=== PATIENT | female | born 1985 | race Caucasian/White ===

== ENCOUNTER 2021-10-13 12:25 | Emergency (ER) | payer MEDICAID, SELFPAY ==
[2021-10-13 12:49] VITALS: BP 117/65; PULSE 83; RESP 18; TEMP 36.4; O2SAT 99; BMI 22.5
--- NOTE | 2021-10-13 13:22 | ED.GENADULT ---
HPI - General Adult General Chief complaint: Anxiety Stated complaint: Covid positive, having panic attacks Time Seen by Provider: 10/13/21 12:46 History of Present Illness HPI narrative: This 36-year-old female comes in reporting anxiety symptoms that started today. She is not typically anxious but has these symptoms today. She tested positive for COVID 7 days ago and again yesterday positive for COVID. She has some cough and nasal congestion but does not report any shortness of breath. Today she has increased anxiety and reports that she has not been sleeping so well at night. Related Data Previous Rx's Medication Instructions Recorded acetaminophen 300 mg-codeine 30 mg 1 tab PO Q6H PRN #15 tab 10/13/21 tablet lorazepam 0.5 mg tablet (Ativan) 0.5 mg PO BID PRN #10 tab 10/13/21 methylprednisolone 4 mg tablets in 4 mg PO DAILY #21 ea 10/13/21 a dose pack (Medrol (Aleks)) Allergies Allergy/AdvReac Type Severity Reaction Status Date / Time No Known Drug Allergies Allergy Verified 10/13/21 12:49 Review of Systems Narrative: Constitutional: No fevers, no weight gain or loss. Eyes: No discharge. No vision changes. HENT: No congestion, no sore throat, no ear pain. Cardiovascular: No chest pain, no palpitations. Respiratory: No shortness of breath, no wheezes, no cough. Gastrointestinal: No abdominal pain, no vomiting, no diarrhea. Genitourinary: No dysuria, no hematuria. Musculoskeletal: Normal range of motion. Skin: No rashes, no pruritis. Neurological: No dizziness, weakness, sensory change, speech change. Endo/Heme/Allergies: No bruising or bleeding. No polydipsia. Pysch: no suicidality. Anxiety symptoms as described above. Some insomnia over the past week. All other systems reviewed and are negative. throughout documentation. PFSH PFS Social History Smoking Status: Never smoker Do you use any of these nicotine containing products: None How often do you have a drink containing alcohol: never AUDIT-C Alcohol total score: 0 Non-prescribed substance use: marijuana (any form) Exam Narrative: Exam Narrative: Constitutional: Well-developed, well-nourished, no acute distress. HEENT: Normocephalic, atraumatic. Neck: Normal range of motion. Nontender. Supple. Heart: Regular. No murmurs. Normal rate. Intact distal pulses. Lungs: Clear to auscultation. No chest discomfort. No wheezes, rhonchi, or rales. Abdomen: Normal bowel sounds. Nontender. No rebound tenderness. Genitalia: Deferred. Back: No midline tenderness. Normal range of motion. Extremities: Normal range of motion. No injury. Skin: Intact. No rash. Warm. No erythema or pallor. Neurologic: No altered sensation. No weakness. Alert and oriented. Psychiatric: No suicidality. No depression. Nursing notes and vitals signs are reviewed. Const: Vital Signs, click to edit/add: Vital Signs - 24 hr 10/13/21 12:49 Temperature 97.5 F L Pulse Rate [Left P ulse Oximeter] 83 Respiratory Rate 18 Blood Pressure [Le ft Upper Arm] 117/65 Pulse Oximetry 99 Course Vital Signs Vital signs: Initial Vital Signs Temperature 97.5 F L 10/13/21 12:49 Temperature Source Temporal Artery Scan 10/13/21 12:49 Pulse Rate 83 10/13/21 12:49 Pulse Rhythm 10/13/21 12:49 Respiratory Rate 18 10/13/21 12:49 Blood Pressure 117/65 10/13/21 12:49 Blood Pressure Mean 82 10/13/21 12:49 Blood Pressure Position Sitting 10/13/21 12:49 Pulse Oximetry 99 10/13/21 12:49 Oxygen Delivery Method 10/13/21 12:49 Vital Signs Temperature 97.5 F L 10/13/21 12:49 Pulse Rate 83 10/13/21 12:49 Respiratory Rate 18 10/13/21 12:49 Blood Pressure 117/65 10/13/21 12:49 Pulse Oximetry 99 10/13/21 12:49 Temperature 97.5 F L 10/13/21 12:49 Pulse Rate 83 10/13/21 12:49 Respiratory Rate 18 10/13/21 12:49 Blood Pressure 117/65 10/13/21 12:49 Pulse Oximetry 99 10/13/21 12:49 Medical Decision Making MDM Narrative Medical decision making narrative: This patient comes in reporting symptoms of anxiety. She arrives with normal vital signs and her exam is also normal. She does have mild symptoms of COVID including cough and nasal congestion. She does not have any shortness of breath. Her main symptom today is anxiety. She has had insomnia over the past week which may be contributing to some of these symptoms. I did discuss lab and imaging options with the patient and in a process of shared decision making she declined any studies for now. She did receive a tablet of Ativan 0.5 mg. This brought some relief to her symptoms. She is okay to be discharged home. I did provide prescription for Medrol Dosepak, Tylenol 3, and a few tablets of Ativan. Discharge Plan Discharge Clinical Impression: COVID-19, Acute anxiety Patient Disposition: Home, Self-Care Condition: Stable Instructions: Anxiety (ED) Additional Instructions: COVID-19 with associated anxiety symptoms. Take medications as needed and prescribed. Follow up with MD or return if worsening. Prescriptions: New acetaminophen-codeine 300-30 mg tablet 1 tab PO Q6H PRN (Reason: pain) Qty: 15 0RF methylprednisolone [Medrol (Aleks)] 4 mg tablets,dose pack 4 mg PO DAILY Qty: 21 0RF lorazepam [Ativan] 0.5 mg tablet 0.5 mg PO BID PRNQty: 10 0RF Stand Alone Forms: [employer] Info Instructions
[2021-10-13] MEDS: LORazepam 0.5 MG TABLET PO (13:37)
[2021-10-13 13:53] VITALS: BP 109/62; PULSE 61; RESP 18; O2SAT 95
== END 2021-10-13 14:13 | disposition home or self-care (01) ==
LOC: ED 14:04
PROVIDERS: Emergency Provider Emergency Medicine Emergency Medical Services
DX: U07.1 COVID-19 (principal); F41.9 Anxiety disorder, unspecified
CPT/HCPCS: 99283; 99284; A9270